=== PATIENT | female | born 1960 | race Caucasian/White ===

== ENCOUNTER → 2021-02-20 18:01 | Outpatient (CLI) | payer BC, SELFPAY ==
[2021-02-20 19:01] LABS: Influenza A - CEPHEID Flu A NEGATIVE (NEGATIVE); Influenza B - CEPHEID Flu B NEGATIVE (NEGATIVE)
[2021-02-20 19:15] LABS: COVID19 -Nasal RAPID Negative (Negative)
== END ==
PROVIDERS: Visit Provider Student in an Organized Health Care Education/Training Program
DX: R50.9 Fever, unspecified (principal); Z20.822 Contact with and (suspected) exposure to COVID-19; R11.0 Nausea
CPT/HCPCS: 87502; 87635